=== PATIENT | male | born 2000 | race African-American/Black ===

== ENCOUNTER 2019-01-10 14:20 | Emergency (ER) | payer SELFPAY ==
[~2019-01-10] VITALS: Ht 177.8 cm; Wt 64.0 kg
[2019-01-10] MEDS ORDERED: SODIUM CHLORIDE 0.9% 1,000 ML IV ONE ×2 (16:15→19:00)
[2019-01-10] MEDS ORDERED: CYANOCOBALAMIN 1000MCG/ML VIAL IM ONE (16:15)
[2019-01-10 16:47] LABS: CHLORIDE 103 mEq/L (98-107)
[2019-01-10 16:52] LABS: ETHANOL BLOOD < 10 mg/dL
[2019-01-10 16:59] LABS: HEMATOCRIT. 42.4 % (42.0-52.0); HEMOGLOBIN. 13.3 g/dL (14.0-18.0); MEAN CORPUSCULAR HEMOGLOBIN 20.3 pg (28.0-32.0); MEAN CORPUSCULAR VOLUME 64.7 fL (80.0-94.0); MEAN PLATELET VOLUME 9.1 fl (7.4-10.4); PLATELET 209 x1000/uL (130-400); RED BLOOD CELL COUNT 6.55 mill/uL (4.7-6.1); RED CELL DISTRIBUTION WIDTH 17.9 % (11.6-14.6)
[2019-01-10 18:07] LABS: PLATELET ESTIMATE NORMAL
[2019-01-10 18:25] LABS: CLARITY URINE CLEAR (CLEAR); COLOR URINE YELLOW (YELLOW); KETONES URINE 3+ (NEGATIVE); LEUKOCYTE ESTERASE URINE NEGATIVE (NEGATIVE); NITRITE URINE NEGATIVE (NEGATIVE); OCCULT BLOOD URINE NEGATIVE (NEGATIVE); PROTEIN URINE NEGATIVE (NEGATIVE)
[2019-01-10 18:39] LABS: *BARBITURATES SCREEN URINE NEGATIVE (NEGATIVE)
[2019-01-10 18:41] LABS: *AMPHETAMINES SCREEN URINE NEGATIVE (NEGATIVE); *BENZODIAZEPINES SCREEN URINE NEGATIVE (NEGATIVE); *COCAINE SCREEN URINE NEGATIVE (NEGATIVE); CANNABINOID URINE SCREEN PRESUMTIVE POSITIVE (NEGATIVE); METHADONE URINE SCREEN NEGATIVE (NEGATIVE); OPIATES URINE SCREEN NEGATIVE (NEGATIVE); PHENCYCLIDINE URINE SCREEN NEGATIVE (NEGATIVE)
[2019-01-10 21:43] VITALS: BP 122/65
== END 2019-01-10 21:47 | disposition home or self-care (01) ==
LOC: ER 14:20
DX: F10.129 Alcohol abuse with intoxication, unspecified (principal); E86.0 Dehydration; R16.0 Hepatomegaly, not elsewhere classified; R51 Headache; R11.2 Nausea with vomiting, unspecified; R82.4 Acetonuria; N17.0 Acute kidney failure with tubular necrosis; F12.10 Cannabis abuse, uncomplicated; R11.10 Vomiting, unspecified; D72.829 Elevated white blood cell count, unspecified; R53.81 Other malaise; R53.83 Other fatigue
CPT/HCPCS: 36415; 71250; 74176; 80053; 80305; 80320; 81003; 83880; 84484; 85025; 93005; 96360; 96361; 96372; 99284; J3420; J7030; Z7610; G0480

== ENCOUNTER 2020-07-27 23:57 | Emergency (ER) | payer MEDICAID, OTHER ==
[~2020-07-27] VITALS: Ht 177.8 cm; Wt 65.0 kg
[2020-07-28 00:40] VITALS: BP 153/107
== END 2020-07-28 02:06 | disposition home or self-care (01) ==
LOC: ER 23:57
DX: T78.40XA Allergy, unspecified, initial encounter (principal); F12.10 Cannabis abuse, uncomplicated; X58.XXXA Exposure to other specified factors, initial encounter
CPT/HCPCS: 99281